=== PATIENT | male | born 1995 | race Two or more races ===

== ENCOUNTER 2024-03-02 05:10 | Emergency (ER) | payer SELFPAY ==
[~2024-03-02] VITALS: Ht 175.3 cm; Wt 72.7 kg
[2024-03-02] MEDS: NOREPINEPHRINE 8 MG/250ML KIT 250 ML IV SCH (05:30)
[2024-03-02 05:34] VITALS: PULSE 130; RESP 18; O2SAT 100
[2024-03-02 05:40] VITALS: RESP 18; O2SAT 100
[2024-03-02] MEDS: NOREPINEPHRINE 8 MG/250ML KIT 250 ML IV ONE (05:54)
[2024-03-02 06:13] VITALS: BP 136/91; PULSE 135; RESP 18; O2SAT 100
== END 2024-03-02 05:58 | disposition short-term general hospital (02) ==
LOC: EDBD 05:10 → ER 05:12
DX: I46.9 Cardiac arrest, cause unspecified (principal); V89.2XXA Person injured in unspecified motor-vehicle accident, traffic, initial encounter; Y93.89 Activity, other specified; Y92.410 Unspecified street and highway as the place of occurrence of the external cause; Y99.8 Other external cause status
CPT/HCPCS: 31500; 36600; 71045; 82805; 87070; 87205; 92950; 93005; 99291